=== PATIENT | male | born 1965 | race Hispanic/Latino ===

== ENCOUNTER 2020-04-02 07:04 | Emergency (ER) | payer SELFPAY ==
[~2020-04-02] VITALS: Ht 167.6 cm; Wt 81.0 kg
[2020-04-02] MEDS ORDERED: INVOKANA300 MG (07:25)
[2020-04-02] MEDS ORDERED: TELMISARTAN40 MG PO (07:26)
[2020-04-02] MEDS ORDERED: METFORMI (07:27)
[2020-04-02] MEDS ORDERED: GLIMEPIRIDE (07:27)
[2020-04-02 07:31] LABS: HEMATOCRIT 44.3 % (39.0-50.0); HEMOGLOBIN 14.7 g/dl (14.0-18.0); IMMATURE GRANULOCYTES 0.3 % (0.0-5.0); MEAN CORPUSCULAR HGB 28.2 pG CALC (26.0-32.0); MEAN CORPUSCULAR HGB CONC 33.2 g/dL CAL (32.0-36.0); NEUT# 3.65 thou/uL (1.82-7.42); RED BLOOD COUNT 5.21 mill/uL (4.70-6.10); RED CELL DISTRI WIDTH 12.4 % (11.5-15.5)
[2020-04-02 07:45] LABS: ALBUMIN 4.1 g/dL (3.2-5.0); ALKALINE PHOSPHATASE 81 u/l (38-126); ANION GAP 14 (6-22 (CALC)); BILIRUBIN, TOTAL 0.5 mg/dL (0.0-1.4); BUN 13 mg/dL (9-20); BUN/CREATININE RATIO 16 (12-20 (CALC)); CARBON DIOXIDE 24 mmol/l (22-30); CHLORIDE 102 mmol/l (95-108); CREATININE 0.9 mg/dL (0.7-1.3); GFR > 60 ML/MIN (>=60 (CALC)); GFR FOR AFR.AMER. > 60 ML/MIN (>=60 (CALC)); POTASSIUM 4.9 mmol/l (3.5-5.1); SGOT/AST 30 u/l (17-59); SODIUM 136 mmol/l (137-146)
[2020-04-02] MEDS ORDERED: BENADRYL 50MG C50 MG PO (07:49)
[2020-04-02] MEDS ORDERED: BENADRY2 EX (07:49)
[2020-04-02] MEDS ORDERED: AMOXICILLIN500 MG PO (07:53)
[2020-04-02 07:56] VITALS: BP 151/86
== END 2020-04-02 07:58 | disposition home or self-care (01) | DRG 607 ==
LOC: ED 07:04
PROVIDERS: Emergency Medicine
DX: L30.9 Dermatitis, unspecified (principal); E11.9 Type 2 diabetes mellitus without complications; I10 Essential (primary) hypertension; Z79.84 Long term (current) use of oral hypoglycemic drugs